=== PATIENT | male | born 1960 | race African-American/Black ===

== ENCOUNTER 2025-01-22 09:30 | Emergency (ER) | payer MEDICARE, OTHER, SELFPAY ==
[2025-01-22 09:31] VITALS: BP 207/106
[2025-01-22 09:37] VITALS: BP 207/106
[2025-01-22 09:43] VITALS: BMI 28.1
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
[2025-01-22 14:56] VITALS: BP 146/89
[2025-01-22 15:16] VITALS: BP 146/89
== END 2025-01-22 17:02 ==
LOC: EMR 09:30
PROVIDERS: CONSULT PHYSICIAN Psychiatry & Neurology Psychiatry; EMERGENCY PHYSICIAN Emergency Medicine; FAMILY PHYSICIAN Internal Medicine
DX: R45.1 Restlessness and agitation (principal); F03.90 Unspecified dementia, unspecified severity, without behavioral disturbance, psychotic disturbance, mood disturbance, and anxiety; F20.9 Schizophrenia, unspecified; I10 Essential (primary) hypertension; E78.5 Hyperlipidemia, unspecified; N40.0 Benign prostatic hyperplasia without lower urinary tract symptoms; F17.200 Nicotine dependence, unspecified, uncomplicated
CPT/HCPCS: 99283

== ENCOUNTER 2025-02-09 10:34 | Emergency (ER) | payer MEDICARE, SELFPAY ==
[2025-02-09 10:37] VITALS: BP 164/92
[2025-02-09 10:46] VITALS: BMI 29.7
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
== END 2025-02-09 13:21 ==
LOC: EMR 10:34
PROVIDERS: EMERGENCY PHYSICIAN Student in an Organized Health Care Education/Training Program; FAMILY PHYSICIAN Internal Medicine
DX: S00.03XA Contusion of scalp, initial encounter (principal); W20.8XXA Other cause of strike by thrown, projected or falling object, initial encounter; Y92.128 Other place in nursing home as the place of occurrence of the external cause; I10 Essential (primary) hypertension; E78.00 Pure hypercholesterolemia, unspecified; F03.90 Unspecified dementia, unspecified severity, without behavioral disturbance, psychotic disturbance, mood disturbance, and anxiety; F17.200 Nicotine dependence, unspecified, uncomplicated
CPT/HCPCS: 99284; 70450